=== PATIENT | male | born 1980 | race Caucasian/White ===

== ENCOUNTER 2017-11-02 10:18 | Emergency (ER) | payer BC ==
[~2017-11-02] VITALS: Ht 198.1 cm; Wt 154.9 kg
[2017-11-02 10:54] LABS: MICROSCOPIC INDICATED
[2017-11-02 10:57] LABS: CULTURE INDICATED? YES
[2017-11-02] MEDS ORDERED: ONDANSETRON ODT 4 MG PO ONE (11:30)
[2017-11-02] MEDS ORDERED: SODIUM CHLORIDE FLUSH 10ML SYR IVF ONE (11:30)
[2017-11-02 12:02] LABS: ALBUMIN 3.9 g/dL (3.4-5.0); ANION GAP 9 mmol/L (5-15); CALCIUM 8.8 mg/dL (8.5-10.1); CHLORIDE 108 mmol/L (98-107); CREATININE 0.99 mg/dL (0.7-1.3)
[2017-11-02 12:06] LABS: BASOPHILS # (AUTO) 0.02 x10^3/uL (0-0.1); BASOPHILS % (AUTO) 0 % (0-1); EOSINOPHILS # (AUTO) 0.01 x10^3/uL (0-0.4); EOSINOPHILS % (AUTO) 0 % (1-7); LYMPHOCYTES # (AUTO) 1.01 x10^3/uL (1-3.4); LYMPHOCYTES % (AUTO) 15 % (22-44); MD NO; MEAN CORPUSCULAR HEMOGLOBIN 29.7 pg (27.5-34.5); MEAN CORPUSCULAR HGB CONC 33.3 g/dL (33.2-36.2); MEAN CORPUSCULAR VOLUME 89.1 fL (81-97); MEAN PLATELET VOLUME 10.8 fL (7.4-10.4); MONOCYTES # (AUTO) 0.49 x10^3/uL (0.2-0.8); MONOCYTES % (AUTO) 7 % (2-9); NEUTROPHILS # (AUTO) 5.18 x10^3/uL (1.8-6.8); NEUTROPHILS % (AUTO) 77 % (42-75); PLATELET COUNT 130 x10^3/uL (130-400); RED BLOOD COUNT 5.09 x10^6/uL (4.38-5.82); RED CELL DISTRIBUTION WIDTH 14.3 % (9.4-14.8)
[2017-11-02] MEDS ORDERED: OMNIPAQUE 350 MG/ML, 150 ML BOTTLE ONE (12:32)
[2017-11-02 14:06] VITALS: BP 125/80
== END 2017-11-02 14:22 | disposition home or self-care (01) ==
LOC: ED 12:51
DX: R10.32 Left lower quadrant pain (principal)
CPT/HCPCS: 36415; 74177; 80048; 81001; 82040; 85025; 87086; 99285; Q9967